=== PATIENT | female | born 1945 | race Caucasian/White ===

== ENCOUNTER 2019-03-24 14:47 | Emergency (ER) | payer OTHER, BC ==
[~2019-03-24] VITALS: Ht 165.1 cm; Wt 81.6 kg
[2019-03-24] MEDS ORDERED: COZAAR50 MG (16:50)
[2019-03-24] MEDS ORDERED: XARELTO20 MG (16:50)
[2019-03-24] MEDS ORDERED: KEFLEX500 MG (16:52)
[2019-03-24] MEDS ORDERED: DECADRON4 MG (16:52)
[2019-03-24] MEDS ORDERED: MORPHINE (16:52)
[2019-03-24] MEDS ORDERED: SYNTHROID (16:53)
[2019-03-24] MEDS ORDERED: MACROBID 100 M100 MG (16:53)
[2019-03-24] MEDS ORDERED: PANTOPRAZOLE SO40 MG (16:54)
[2019-03-24] MEDS ORDERED: LATANOPROST2.5 ML (16:54)
[2019-03-25] MEDS ORDERED: PHENADOZ25 MG RECTAL (06:13)
== END 2019-03-25 07:13 | disposition home or self-care (01) ==
LOC: ER 14:47
DX: K29.60 Other gastritis without bleeding (principal); R10.13 Epigastric pain; C16.9 Malignant neoplasm of stomach, unspecified